=== PATIENT | female | born 1950 | race Caucasian/White ===

== ENCOUNTER → 2016-12-15 17:02 | Outpatient (CLI) | payer MEDICARE | END | disposition home or self-care (01) | LOC: D.MAMMO 09:00 | DX: Z12.31 Encounter for screening mammogram for malignant neoplasm of breast (principal) ==

== ENCOUNTER → 2017-05-02 16:04 | Outpatient (CLI) | payer MEDICARE | END | disposition home or self-care (01) | LOC: D.MRI 16:04 | DX: M25.552 Pain in left hip (principal) ==

== ENCOUNTER 2017-06-30 08:27 | Emergency (ER) | payer MEDICARE ==
[~2017-06-30 08:27] MED LIST: CELEXA20 MG PO; PLAVIX75 MG PO; TRAZODONE HCL150 MG PO
[2017-06-30 09:14] LABS: BASOPHILS 0.2 % (0-2); EOSINOPHILS 2.2 % (0-7); HEMATOCRIT 38.6 % (36.0-48.0); HEMOGLOBIN 12.9 g/dL (12-16); IMMATURE GRANULOCYTES 0.2 % (0-5); LYMPHOCYTES 22.1 % (15-50); MCH 33.8 pg (26.0-34.0); MCHC 33.4 g/dL (31.0-37.0); MEAN PLATELET VOLUME 9.5 fL (7.4-10.4); MONOCYTES 6.6 % (2-11); NEUTROPHILS 68.7 % (40-80); PLATELET COUNT 177 10x3/uL (130-400); RBC 3.82 10x6/uL (4.00-5.40); WBC 4.5 10x3/uL (4.8-10.8)
[2017-06-30 09:15] LABS: ALBUMIN 4.1 g/dL (3.4-5.0); ALKALINE PHOSPHATASE 102 U/L (46-116); ALT (SGPT) 35 U/L (10-68); CALC OSMOLALITY 287 mosm/kg (275-300); CALCIUM 9.4 mg/dL (8.5-10.1); CARBON DIOXIDE 28.7 mmol/L (21.0-32.0); CHLORIDE - SERUM 106 mmol/L (98-107); CREATININE - SERUM 0.8 mg/dL (0.6-1.3); GLUCOSE 115 mg/dL (74-106); POTASSIUM - SERUM 3.8 mmol/L (3.5-5.1); PROTEIN - SERUM 7.5 g/dL (6.4-8.2); SODIUM 143 mmol/L (136-145); UREA NITROGEN 17 mg/dL (7-18); eGFR NON AFRICAN AMERICAN 76 mL/min (90-120)
[2017-06-30 09:33] LABS: CKMB 3.1 U/L (0.0-3.6); CREATINE KINASE 302 UL (21-215); TROPONIN-I < 0.017 ng/mL (0.000-0.060)
[2017-06-30 09:50] LABS: MAGNESIUM - SERUM 2.1 mg/dL (1.8-2.4)
== END 2017-06-30 10:56 | disposition home or self-care (01) ==
LOC: D.ER 08:27
PROVIDERS: Emergency Medicine
DX: R07.9 Chest pain, unspecified (principal); I25.10 Atherosclerotic heart disease of native coronary artery without angina pectoris; R05 Cough; R06.00 Dyspnea, unspecified

== ENCOUNTER → 2018-02-11 17:05 | Outpatient (CLI) | payer MEDICARE | END | disposition home or self-care (01) | LOC: D.MAMMO 10:00 | DX: Z12.31 Encounter for screening mammogram for malignant neoplasm of breast (principal) ==

== ENCOUNTER 2019-02-23 19:34 | Emergency (ER) | payer MEDICARE ==
[~2019-02-23] VITALS: Ht 165.1 cm; Wt 70.8 kg
[2019-02-23 19:46] VITALS: Ht 165.1 cm; Wt 70.8 kg
[2019-02-23] MEDS ORDERED: VOLTAREN75 MG PO (20:41)
[2019-02-23 21:14] VITALS: BP 132/72
[2019-02-26] MEDS ORDERED: LIPITOR40 MG PO (12:51)
[2019-02-26] MEDS ORDERED: VITAMIN D31000 UNIT PO (12:52)
[2019-02-26] MEDS ORDERED: ISOSORBIDE MONO30 M1 PO (12:52)
[2019-02-26] MEDS ORDERED: BAYER CHEWABLE81 MG PO (12:53)
[2019-02-26] MEDS ORDERED: FISH OIL 1,0001 CA1 PO (12:53)
== END 2019-02-23 21:00 | disposition home or self-care (01) ==
LOC: D.ER 19:34
DX: S99.821A Other specified injuries of right foot, initial encounter (principal); I25.10 Atherosclerotic heart disease of native coronary artery without angina pectoris

== ENCOUNTER 2019-02-27 11:44 | Day surgery (SDC) | payer MEDICARE ==
[2019-02-26 13:50] LABS: HEMATOCRIT 37.2 % (36.0-48.0); HEMOGLOBIN 12.6 g/dL (12-16); MCH 32.8 pg (26.0-34.0); MCHC 33.9 g/dL (31.0-37.0); MCV 96.9 fL (80.0-100.0); MEAN PLATELET VOLUME 9.1 fL (7.4-10.4); RBC 3.84 10x6/uL (4.00-5.40); RDW 12.6 % (11.5-14.5); WBC 5.2 10x3/uL (4.8-10.8)
[~2019-02-27] VITALS: Ht 165.1 cm; Wt 66.2 kg
[~2019-02-27 11:44] MED LIST changes: +BAYER CHEWABLE81 MG PO; +FISH OIL 1,0001 CA1 PO; +ISOSORBIDE MONO30 M1 PO; +LIPITOR40 MG PO; +VITAMIN D31000 UNIT PO; +VOLTAREN75 MG PO
[2019-02-27 12:59] VITALS: BP 115/70; Ht 165.1 cm; Wt 66.2 kg
[2019-02-27] MEDS ORDERED: HYDROCODON-ACE1 EAC7 PO (20:16)
== END 2019-02-27 21:38 | disposition home or self-care (01) ==
LOC: D.OPS 11:44 → D.PAN 14:00 → D.MS 19:50 → D.OPS 21:38
PROVIDERS: Anesthesiology; ATTEND Podiatrist Foot & Ankle Surgery
DX: S92.351A Displaced fracture of fifth metatarsal bone, right foot, initial encounter for closed fracture (principal); X58.XXXA Exposure to other specified factors, initial encounter; M20.12 Hallux valgus (acquired), left foot; M21.612 Bunion of left foot; Z01.812 Encounter for preprocedural laboratory examination

== ENCOUNTER 2019-05-09 09:00 | Outpatient (CLI) | payer MEDICARE ==
[2019-02-27 12:59] VITALS: BMI 24.3
[~2019-05-09 09:00] MED LIST changes: +HYDROCODON-ACE1 EAC7 PO
== END 2019-05-09 10:00 | disposition home or self-care (01) ==
LOC: D.MAMMO 09:00
PROVIDERS: ATTEND Family Medicine
DX: Z12.31 Encounter for screening mammogram for malignant neoplasm of breast (principal)

== ENCOUNTER → 2019-05-14 17:51 | Outpatient (CLI) | payer MEDICARE ==
[2019-02-27 12:59] VITALS: BMI 24.3
[~2019-05-14 17:51] MED LIST changes: +BACTRIM 400-801 TAB PO; +CHRONULAC30 ML PO
== END | disposition home or self-care (01) ==
LOC: D.LABREF 17:51
PROVIDERS: ATTEND Podiatrist Foot & Ankle Surgery
DX: L03.116 Cellulitis of left lower limb (principal)

== ENCOUNTER 2019-05-16 14:09 | Inpatient (IN) | payer MEDICARE ==
[~2019-05-16] VITALS: Ht 165.1 cm; Wt 74.1 kg
--- NOTE | ~2019-05-16 | HEMODYNAMI ---
PATIENT:KAREEM SNYDER MEDICAL RECORD: [id number] : 52 LOCATION:[facility] D.2124 ADMISSION DATE: 05/16/19 Generatedon:05/19/20199:38 Patient name: KAREEM SNYDER Patient #: [id number] SSN: DO B: 1950 Date of study: 05/19/2019 Page: Of Hemodynamic Procedure Report Patient Data Patient Demographics Procedure consent was obtained First Name: KAREEM Gender: Female Last Name: CLAUDIO : 1950 [facility] Initial: GARY Age: 68 year(s) Patient #: [id number] Race: Unknown Additional ID: [id number] Contact details [address]: [address] [place] [address] State: [place] City: [place] Zip code: [address] Admission Admission Data Admission Date: 05/16/2019 Admission Time: 14:09 Admit Source: Other Room #: D.2124 Height (in.): 65 BSA: 1.81 (m2) Height (cm.): 165.1 BMI: 27.12 (kg/m2) Weight (lbs.): 163 Weight (kg.): 73.94 Lab Results Lab Result Date: 05/19/2019 Lab Result Time: 0:00 Biochemistry Name Units Result Min Max BUN mg/dl 10 --(-*--)-- 7 18 Creatinine mg/dl 0.8 --(-*--)-- 0.6 1.3 CBC Name Units Result Min Max Hemoglobin g/dl 13.1 -*(----)-- 13.5 17.5 Procedure Procedure Types Cath Procedure Diagnostic Procedure LHC LHC w/Coronaries w/Grafts Procedure Description Procedure Date Procedure Date: 05/19/2019 Procedure Start Time: 9:20 Procedure End Time: 9:36 Procedure Staff Name Function Randall Santos RT Scrub Janis Haque RT Monitor Roni Chan MD Performing Physician Soila Carcamo RN Nurse Mckenzie Peters RT Scrub Procedure Data Cath Procedure Fluoroscopy Diagnostic fluoroscopy Total fluoroscopy Time: 4.9 time: 4.9 min min Diagnostic fluoroscopy Total fluoroscopy dose: 206 dose: 206 mGy mGy Contrast Material Contrast Material Type Amount (ml) Isovue 300 76 Entry Location Entry Primary Successful Side Size Upsize Upsize Entry Closure Succes sful Closure Location (Fr) 1 (Fr) 2 (Fr) Remarks Device Remarks Femoral Right 5 Fr Exoseal artery Estimated blood loss: 5 ml Diagnostic catheters Device Type Used For End Catheter Placement MULTIPACK JL 4.0 5Fr Left Coronary catheter Angiography DIAGNOSTIC IM 5Fr SVG Angiography catheter ([id number]) DIAGNOSTIC AR MOD 5Fr Multi-vessel Catheter ([id number]) Angiography MULTIPACK Pigtail 5 Fr Multi-vessel catheter Angiography Procedure Complications No complications Procedure Medications Medication Administration Route Dosage 0.9% NaCl I.V. 100 ml/hr Oxygen etCO2 Nasal cannula 2 l/min Lidocaine 2% added to field 20 Heparin Flush Bag added to field 2 bags (1000units/500ml NS) Versed I.V. 2 mg Fentanyl I.V. 50 mcg Hemodynamics Rest BSA: 1.81 (m2) HGB: 13.1 (g/dl) O2 Consumption: Estimated: 165.29 (ml/min) O2 Co nsumption indexed: Estimated:91.32 (ml/min/m) Heart Rate: 66 (bpm) Pressure Samples Time Site Value (mmHg) Purpose Heart Use Rate(bpm) 9:32 LV 102/-5,8 Snapshot 67 9:33 AO 105/49(72) Pullback 66 9:33 LV 113/-4,12 Pullback 66 Gradients Valve Time Site 1 Site 2 Mean SEP/DFP Peak To Heart Use (mmHg) (sec/min) Peak Rate (mmHg) (bpm) Aortic 9:33 LV AO 9 20 8 66 113/-4,12 105/49(72) Calculations Valve P-P Mean Valve Index Valve Source Name Gradient Area Flow (cm2) Aortic 8 9 8 9 Snapshots Pre Cath Intra NCS Post Cath Vital Signs Time Heart Resp SPO2 etCO2 NIBP Rhythm Pain Sedation Rate (ipm) (%) (mmHg) (mmHg) Status Level (bpm) 9:03:43 61 17 100 0 Measuring NSR 0 (11) 10(A) , No pain 9:10:06 61 15 98 0 110/86(94) NSR 0 (11) 9(A) , No pain 9:16:25 67 15 98 0 Measuring NSR 0 (11) 9(A) , No pain 9:20:41 60 13 98 0 104/54(84) NSR 0 (11) 9(A) , No pain 9:24:53 64 16 98 0 104/61(87) NSR 0 (11) 9(A) , No pain 9:29:03 65 15 96 0 103/56(86) NSR 0 (11) 9(A) , No pain 9:33:12 66 14 97 0 98/51(80) NSR 0 (11) 10(A) , No pain Medications Time Medication Route Dose Verified Delivered Reason Notes Effe ctiveness by by 9:04:35 0.9% NaCl I.V. 100 Roni Soila used for ml/hr Dustin Carcamo data processing manager 9:04:41 Oxygen etCO2 2 Roni Soila used for Nasal l/min Dustin Carcamo procedure cannula RN 9:04:47 Lidocaine 2% added 20ml Roni Roni for local to vial Dustin Chan MD anesthetic field 9:04:51 Heparin Flush added 2 Roni Roni used for Bag to bags Dustin Chan MD procedure (1000units/500ml field NS) 9:06:36 Versed I.V. 2 mg Roni Soila for Dustin Carcamo sedation RN 9:06:52 Fentanyl I.V. 50 Roni Soila for mcg Dustin Carcamo sedation hospital cna Log Time Note 7:47:33 Diagnostic Cath Status : Elective 7:48:03 Time tracking: Regular hours (M-F 7:00 - 5:00) 7:48:08 Plan of Care:Hemodynamics will remain stable., Cardiac rhythm will remain stable., Comfort level will be maintained., Respiratory function will remain adequate., Patient/ family verbilizes understanding of procedure., Procedure tolerated without complication., Recovers from procedure without complications.. 7:49:28 Lab Result : Hemoglobin 13.1 g/dl 7:49:28 Lab Result : Creatinine 0.8 mg/dl 7:49:28 Lab Result : BUN 10 mg/dl 7:49:31 Admit Source: Other 7:49:40 Patient Weight : 163 lbs 7:49:54 Patient Height : 65 inches 8:16:59 Procedure type changed to Cath procedure, Diagnostic procedure, LHC, LHC w/Coronaries w/Grafts 8:20:02 Janis Garland RT(R) sent for patient. Start room use. 8:42:15 Patient received from Med II to CCL 2 Alert and oriented. Tansferred to table in Supine position. 8:42:17 Warm blankets applied, and oneal hugger turned on for patient comfort. 8:42:18 Correct patient and procedure confirmed by team. 8:42:19 Signed procedure consent form obtained from patient. 8:42:21 ECG and BP/O2 sat monitors applied to patient. 9:01:54 Vital chart was started 9:02:25 Baseline sample Acquired. 9:02:29 Rhythm: sinus rhythm 9:02:31 Full Disclosure recording started 9:02:37 H&P Date Dictated: 05/19/2019 New H&P dictated by physician.. 9:02:39 Pre-procedure instructions explained to patient. 9:02:39 Pre-op teaching completed and patient verbalized understanding. 9:02:40 Family in waiting room. 9:02:41 Patient NPO since Midnight. 9:02:44 Is the patient allergic to Iodine/contrast media? No. 9:02:45 Was the patient premedicated? No 9:02:46 Is patient on blood thinner?No 9:02:47 Patient diabetic? No. 9:02:50 Previous problem with sedation/anesthesia? No ? 9:02:52 Snore? No 9:02:54 Sleep apnea? No 9:02:55 Deviated septum? No 9:02:58 Opens mouth fully? Yes 9:02:59 Sticks out tongue? Yes 9:03:01 Airway obstruction? No ? 9:03:05 Dentures? Yes out 9:04:35 0.9% NaCl 100 ml/hr I.V. was administered by Soila Carcamo RN; used for procedure; 9:04:41 Oxygen 2 l/min etCO2 Nasal cannula was administered by Soila Carcamo RN; used for procedure; 9:04:47 Lidocaine 2% 20ml vial added to field was administered by Roni Chan MD; for local anesthetic; 9:04:51 Heparin Flush Bag (1000units/500ml NS) 2 bags added to field was administered by Roni Chan MD; used for procedure; 9:05:14 Pre procedure: right dorsailis pedis pulse 1+ Palpable, but thready & weak; easily obliterated 9:05:17 Pre procedure: left dorsailis pedis pulse 1+ Palpable, but thready & weak; easily obliterated 9:05:22 IV patent on arrival in left forearm with 0.9% NaCl at KVO. 9:05:25 Lab results completed and on chart. 9:05:29 Right groin area was prepped with chlora-prep and draped in sterile fashion 9:05:30 Alarms reviewed by R. N. 9:05:30 Sharps counted by scrub and verified by R.N. 9:05:31 Physician arrived 9:05:32 --------ALL STOP TIME OUT------ 9:05:33 Final Timeout: patient, procedure, and site verified with staff and physician. All members of the team are in agreement. 9:05:35 Right groin site verified by team. 9:05:38 Fire Safety Assessment: A--An alcohol-based skin anteseptic being used preoperatively., C--Open oxygen or nitrous oxide is being used., D--An ESU, laser, or fiber-optic light is being used. 9:05:41 Physical assessment completed. ASA score P 2 - A patient with mild systemic disease as per Randall Santos RT(R). 9:05:57 2) 60-89 Mildly reduced kidney function, and other findings (as for stage 1) point to kidney disease. 9:06:02 Maximum allowable contrast does (3.7 X eGFR X 0.75)210 ml. 9:06:19 Sedation plan: IV Moderate Sedation Medication:Versed, Fentanyl 9:06:36 Versed 2 mg I.V. was administered by Soila Carcamo RN; for sedation; 9:06:52 Fentanyl 50 mcg I.V. was administered by Soila Carcamo RN; for sedation; 9:15:17 Use device set Femoral Dx 9:15:18 ACIST Syringe (33461) opened to sterile field. 9:15:18 Bag Decanter (2002) opened to sterile field. 9:15:19 Medline Cath Pack ([id number]) opened to sterile field. 9:15:20 ACIST Hand Control (83617) opened to sterile field. 9:15:20 ACIST Manifold (09788) opened to sterile field. 9:15:21 DIAGNOSTIC Multipack 5Fr catheter set ([id number]) opened to sterile field. 9:15:21 Tegaderm 4 x 4 (1626W) opened to sterile field. 9:15:26 EMERALD Guide Wire (502-955) opened to sterile field. 9:15:26 SHEATH 5FR Golf ([id number]) opened to sterile field. 9:15:44 Zero performed for pressure channel P1 9:15:49 Zero performed for pressure channel P1 9:15:55 Zero performed for pressure channel P1 9:16:07 Zero performed for pressure channel P1 9:20:07 Zero performed for pressure channel P1 9:20:25 Procedure started. 9:20:27 Local anesthetic to right femoral artery with Lidocaine 2% by Randall NAVA(R).INITIAL ACCESS ONLY 9:20:39 A 5 Fr sheath was inserted into the Right Femoral artery 9:21:28 A MULTIPACK JL 4.0 5Fr catheter was advanced over the wire and used for Left Coronary Angiography. 9:21:40 LCA angiography performed. 9:21:42 Injector settings: Ml/sec: 3, Volume: 6, 9:22:08 RENEE EtCO2 d/t monitor malfunction. 9:22:27 Catheter removed. 9:25:09 A DIAGNOSTIC IM 5Fr catheter ([id number]) was advanced over the wire and used for SVG Angiography. 9:26:57 SANCHEZ to LAD angiography performed. 9:27:01 Injector settings: Ml/sec: 3, Volume: 6, 9:27:27 Catheter removed. 9:28:12 A DIAGNOSTIC AR MOD 5Fr Catheter ([id number]) was advanced over the wire and used for Multi-vessel Angiography. 9:29:12 RCA angiography performed. 9:29:19 Injector settings: Ml/sec: 3, Volume: 6, 9:29:57 SVG to RCA angiography performed. 9:30:24 SVG to Circ angiography performed. 9:30:57 Catheter removed. 9:32:00 A MULTIPACK Pigtail 5 Fr catheter was advanced over the wire and used for Multi-vessel Angiography. 9:32:36 LV hemodynamics recorded. 9:32:38 LV gram done using HALL 9:32:42 Injector settings: Ml/sec: 5, Volume: 15, 9:33:06 EF : 55 % 9:33:37 Catheter removed. 9:33:55 EXOSEAL 5Fr (EX500) opened to sterile field. 9:34:05 Sheath removed intact; hemostasis achieved with Exoseal to the Right Femoral artery. 9:34:07 Procedure ended.(Physican Out) 9:34:20 Fluoroscopy time 04.90 minutes. 9:34:49 Flurop Dose total: 206 9:34:49 Fluoroscopy dose: 206 mGy 9:34:56 Contrast amount:Isovue 300 76ml. 9:34:58 Sharps counted by scrub and verified by R.N. 9:34:59 Insertion/operative site no bleeding no hematoma. 9:35:02 Post-op/insertion site Right Femoral artery dressed using a 4 x 4 and Tegaderm. 9:35:36 Post right femoral artery:stable 9:35:38 Post Procedure Pulses reassessed and unchanged 9:35:42 Post procedure rhythm: unchanged. 9:35:44 Estimated blood loss: 5 ml 9:35:46 Post procedure instruction explained to patient.Patient verbalizes understanding. 9:35:46 Patient needs reinforcement of post procedure teaching. 9:35:47 Procedure and supply charges have been captured, reviewed, submitted and are correct. 9:35:53 Procedure Complication : No complications 9:35:59 Vital chart was stopped 9:35:59 See physician's report for complete and final results. 9:36:15 Report given to Med II. 9:36:18 Report given to Med II. 9:36:24 Patient transfered to Med II with Stretcher. 9:36:27 Procedure ended. 9:36:27 Full Disclosure recording stopped 9:36:34 End room use (Document Last) Device Usage Item Name Manufacture Quantity Catalog Hospital Part Current Minimal L ot# / Number Charge Number Stock Stock Serial# Code ACIST Acist 1 [id number] 536682 916027 529395 20 Syringe Medical (61456) Systems Inc Bag Microtek 1 244296 61307 711267 5 Decanter Medical Inc. () Medline Medline 1 [id number] 438305 40105 737847 5 Cath Pack ([id number]) ACIST Hand Acist 1 92558 333652 820146 223610 5 Control Medical (87654) Systems Inc ACIST Acist 1 77619 830604 252007 032208 5 Manifold Medical (78148) Systems Inc DIAGNOSTIC Cardinal 1 [id number] 904275 54061 229760 30 Multipack Health 5Fr catheter set (SH7712) Tegaderm 4 3M 1 1626W 804092 464600 632615 5 x 4 (1626W) EMERALD Cardinal 1 502455 124894 656158 833087 5 Guide Wire Health (502455) SHEATH 5FR Terumo 1 XYL805 364436 550708 508185 5 Golf (TRG651) MULTIPACK Cardinal 1 618546 5 JL 4.0 5Fr Health catheter DIAGNOSTIC Cardinal 1 [id number] 338193 923313 321398 5 IM 5Fr Health catheter (402604H) DIAGNOSTIC Cardinal 1 [id number] 356668 869890 529746 15 AR MOD 5Fr Health Catheter (394411H) MULTIPACK Cardinal 1 856569 5 Pigtail 5 Health Fr catheter EXOSEAL 5Fr Cardinal 1 EX500 974951 370977 565665 10 (EX500) Health Signature Audit [place] Stage Time Signature Unsigned Intra-Procedure 05/19/2019 Janis Haque 9:37:49 AM RT(R) Signatures Monitor : Janis Haque RT Signature : Date : Time : Performing Physician : Signature : Roni Chan MD Date : Time : Nurse : Soila Carcamo RN Signature : Date : Time : [place] [address], [place] [address]
[~2019-05-16 14:09] MED LIST changes: -BACTRIM 400-801 TAB PO; -CHRONULAC30 ML PO
--- NOTE | 2019-05-16 15:02 | NUR ---
PT AWAKE AND ORIENTED, LYING IN BED. ANSWERS ALL QUESTIONS APPROPRIATETLY, SHOWS NO SIGNS/SYMPTOMS OF DISTRESS AT THIS TIME. STATES FOOT HURTS A 5/10. NO QUESTIONS/CONCERNS/COMMENTS AT THIS TIME. CL IN REACH, SRX2.
[2019-05-16 15:19] VITALS: BP 121/78; Ht 165.1 cm; Wt 74.1 kg
--- NOTE | 2019-05-16 15:32 | NUR ---
SUICIDE SCREENING COMPLETED. REPLENISHMENT ANALYST NOTIFIED.
[2019-05-16 16:31] VITALS: BP 119/74
--- NOTE | 2019-05-16 16:33 | NUR ---
DR. GONZALEZ NOTIFIED AND REVIEWED PT'S BEHAVIOR AND ASSESSMENT RESULTS. PT IS A LOW RISK PER DR. GONZALEZ. DR. GONZALEZ STATED TO GIVE RESOURCES TO PT AT TIME OF DISCHARGE. NO FURTHER ORDERS AT THIS TIME. RESOURCES REVIEWED WITH PT AND SHE VERBALIZED UNDERSTANDING.
[2019-05-16 17:06] LABS: BASOPHILS 0 % (0-2); HEMATOCRIT 36.1 % (36.0-48.0); HEMOGLOBIN 12.3 g/dL (12-16); LYMPHOCYTES 19.9 % (15-50); MCH 32.7 pg (26.0-34.0); MCHC 34.1 g/dL (31.0-37.0); MEAN PLATELET VOLUME 9.3 fL (7.4-10.4); MONOCYTES 8.8 % (2-11); NEUTROPHILS 69.3 % (40-80); PLATELET COUNT 157 10x3/uL (130-400); RBC 3.76 10x6/uL (4.00-5.40); RDW 12.5 % (11.5-14.5); WBC 4.1 10x3/uL (4.8-10.8)
[2019-05-16 17:23] LABS: ANION GAP 14.3 mmol/L (8-16); CALCIUM 9.3 mg/dL (8.5-10.1); CARBON DIOXIDE 28.4 mmol/L (21.0-32.0); POTASSIUM - SERUM 3.7 mmol/L (3.5-5.1)
[2019-05-16 20:00] VITALS: BP 118/59
--- NOTE | 2019-05-16 22:36 | NUR ---
INITIAL ROUNDS COMPLETED AT 1915 HRS. PT DENIED AN DISCOMFORT. ASSESSMENT COMPLETED AT 2009 HRS. VSS. ALERT AND ORIENTED TO PERSON, PLACE AND TIME. HOBS[place]. IV TO L HAND SL. LUNGS CTA. ABD SOFT WITH ACTIVE BS NOTED. SR PER CM HR 80. DRESSING TO L FOOT CLEAN, DRY AND INTACT. PALPABLE PEDAL PULSES. PT CURRENTLY RESTING WITH EYES CLOSED. RESP EVEN AND REGULAR. SR UP X2, CALL LIGHT WITHIN REACH.
[2019-05-17] VITALS: BP 108/59
--- NOTE | 2019-05-17 00:52 | NUR ---
PT RESTING WITH EYES CLOSED. RESP EVEN AND REGULAR. SR UP X2,CALL LIGHT WITHIN REACH.
--- NOTE | 2019-05-17 02:25 | NUR ---
PT RESTING WITH EYES CLOSED. RESP EVEN AND REGULAR. SR UP X2, CALL LIGHT WITHIN REACH.
[2019-05-17 04:00] VITALS: BP 127/67
--- NOTE | 2019-05-17 04:36 | NUR ---
PT AWKE; DENIES ANY DISCOMFORT. COFFEE GIVEN PER REQUEST. SR UP X2, CALL LIGHT WITHN REACH.
[2019-05-17 05:44] LABS: BASOPHILS 0.3 % (0-2); EOSINOPHILS 8.9 % (0-7); HEMATOCRIT 35.7 % (36.0-48.0); HEMOGLOBIN 12.1 g/dL (12-16); IMMATURE GRANULOCYTES 0.3 % (0-5); LYMPHOCYTES 26.4 % (15-50); MCH 32.4 pg (26.0-34.0); MCHC 33.9 g/dL (31.0-37.0); MCV 95.5 fL (80.0-100.0); MEAN PLATELET VOLUME 9.5 fL (7.4-10.4); NEUTROPHILS 50.1 % (40-80); PLATELET COUNT 153 10x3/uL (130-400); RBC 3.74 10x6/uL (4.00-5.40); RDW 12.4 % (11.5-14.5); WBC 3.1 10x3/uL (4.8-10.8)
[2019-05-17 06:12] LABS: ALBUMIN 3.4 g/dL (3.4-5.0); ANION GAP 13.3 mmol/L (8-16); BILIRUBIN - TOTAL 0.85 mg/dL (0.2-1.3); CARBON DIOXIDE 26.5 mmol/L (21.0-32.0); POTASSIUM - SERUM 3.8 mmol/L (3.5-5.1)
--- NOTE | 2019-05-17 06:17 | NUR ---
VSS THROUGHOUT NIGHT. PT DENIED ANY DISCOMFORT. NEEDS MET; WILL CONTINUE TO MONITOR.
--- NOTE | 2019-05-17 07:45 | NUR ---
ASSESSMENT COMPLETED. ALERT AND ORIENTED. TELEMERTY SHOWS SR. LEFT HAND SL. LUNGS CLEAR. DRSG TO KEFT FOOT DRY AND INTACT. NO NEEDS VOICED. WILL MONITOR. SR UP WITH CALL LIGHT IN REACH
[2019-05-17 09:43] VITALS: BP 126/61
--- NOTE | 2019-05-17 16:08 | NUR ---
PT DENIES ANY NEEDS. FAMILY AT BEDSIDE. SR UP WITH CALL LIGHT IN REACH
[2019-05-17 20:00] VITALS: BP 135/61
--- NOTE | 2019-05-17 20:00 | NUR ---
IV STARTED #20 TO LFA WITH ATTEMPT X1 AT 1840 HRS. VANCOMYCIN STARTED AT THAT TIME.
--- NOTE | 2019-05-17 23:28 | NUR ---
ASSESSMENT COMPLETED AT 1940 HRS. VSS. SR PER CM HR 73. ALERT AND ORIENTED TO PERSON, PLACE AND TIME. HOBS[place]. LUNGS CTA. IV TO INNER L FA WITH IVAB INFUSING. DRESSING TO L FOOT CLEAN, DRY AND INTACT. PT HAD C/O CP UNDER L BREAST AND RETCHING AT 2049 HRS. PT DRY HEAVING IN [place]. PT STATED SHE HAS HAD TRIPLE BYPASS AND A STENT IN THE PAST. ALSO STATES IS CONSTIPATED. PAIN AND RETCHING SUBSIDED AFTER APPROX 10 MINUTES. PM MEDS GIVEN INCLUDING ASA AND IMDUR. INFORMED PT WILL DO EKG IF MORE PAIN. DAUGHTER CALLED NURSE'S STATION AT APPROX 212 HRS. STATED HER MOTHER CALLED AND STATED SHE WAS HAVING CP. DAUGHTER STATED HER MOTHER HAD PAIN LIKE DESCRIBED IN THE PAST AND RECEIVED A STENT. INFORMED DAUGHTER WILL MONITOR PT. EKG DONE AT APPROX 2200 HRS. PT UPSET THAT THIS NURSE WAS NOT TAKING HER PAIN SERIOUSLY. INFORMED PT IT WAS BEING TAKEN SERIOUSLY AND APOLOGIZED TO PT IF IT SEEMED IT WAS NOT. ASKED PT IF SHE WOULD LIKE ANOTHER NURSE AND SHE STATED NO. ALIS SOTO AT 2215 HRS. DAUGHTER CALLED BACK TO NURSE'S STATION AND STATED HER MOTHER WAS IN TEARS BECAUSE OF THE SITUATION. INFORMED DAUGHTER HER MOTHER WAS APOLOGIZED TO. OLED-TAR RETURNS PAGE AT 2220 HRS. INFORMED OF PT'S C/O CP. NEW ORDERS RECEIVED AND NOTED. DR HAYNES PAGEEvangelina AT 2230 HRS. RETURNED PAGE AT 2235 HRS. INFORMED OF CONSULT, PT'S HISTORY AND ORDES FROM [employer] NEW ORDERS RECEIVED AND NOTED. MORPHINE 4MG, ZOFRAN 4MG GIVEN SIVP AT 2244 HRS. PT CURRENTLY DENIES ANY DISCOMFORT. AWAITING CE RESULTS. SR UP X2, CALL LIGHT WITHIN REACH.
[2019-05-17 23:43] LABS: CKMB 0.8 U/L (0.0-3.6); CREATINE KINASE 87 UL (21-215); TROPONIN-I < 0.017 ng/mL (0.000-0.060)
[2019-05-18] VITALS: BP 121/63
--- NOTE | 2019-05-18 00:18 | NUR ---
PT AWAKE; DENIES ANY DISCOMFORT OR NEEDS. SR UP X2, CALL LIGHT WITHIN REACH.
--- NOTE | 2019-05-18 02:23 | NUR ---
PT RESTING WITH EYES CLOSED. RESP EVEN AND REGULAR. SR UP X1, CALL LIGHT WITHIN REACH.
[2019-05-18 04:00] VITALS: BP 122/66
--- NOTE | 2019-05-18 04:47 | NUR ---
EKG DONE. PT DENIES ANY DISCOMFORT. TRAZADONE 75MG PO GIVEN PER REQUEST. SR UP X2, CALL LIGHT WITHIN REACH.
[2019-05-18 05:57] LABS: BASOPHILS 0.3 % (0-2); EOSINOPHILS 9.3 % (0-7); HEMATOCRIT 36.2 % (36.0-48.0); HEMOGLOBIN 12.3 g/dL (12-16); MCH 32.5 pg (26.0-34.0); MCV 95.5 fL (80.0-100.0); MEAN PLATELET VOLUME 9.4 fL (7.4-10.4); MONOCYTES 10.3 % (2-11); NEUTROPHILS 45.1 % (40-80); PLATELET COUNT 153 10x3/uL (130-400); RBC 3.79 10x6/uL (4.00-5.40); RDW 12.4 % (11.5-14.5)
--- NOTE | 2019-05-18 05:59 | NUR ---
VSS THROUGHOUT NIGHT. SR PER CM. DENIES ANY DISCOMFORT THIS AM. NEEDS MET; WILL CONTINUE TO MONITOR.
[2019-05-18 06:33] LABS: ALBUMIN 3.3 g/dL (3.4-5.0); ALKALINE PHOSPHATASE 253 U/L (46-116); ALT (SGPT) 168 U/L (10-68); BILIRUBIN - TOTAL 0.49 mg/dL (0.2-1.3); CALC OSMOLALITY 278 mosm/kg (275-300); CALCIUM 8.8 mg/dL (8.5-10.1); CARBON DIOXIDE 27.2 mmol/L (21.0-32.0); CHLORIDE - SERUM 104 mmol/L (98-107); CKMB 1.1 U/L (0.0-3.6); CREATINE KINASE 75 UL (21-215); CREATININE - SERUM 0.8 mg/dL (0.6-1.3); GLUCOSE 151 mg/dL (74-106); POTASSIUM - SERUM 3.5 mmol/L (3.5-5.1); SODIUM 139 mmol/L (136-145); TROPONIN-I < 0.017 ng/mL (0.000-0.060); eGFR NON AFRICAN AMERICAN 76 mL/min (90-120)
[2019-05-18 06:35] LABS: UREA NITROGEN 8 mg/dL (7-18)
--- NOTE | 2019-05-18 07:20 | NUR ---
ALERT AND ORIENTED. UP TO BR AND SINK ONLY. TELEMERTY SHOWS SR. LEFT FA SL. DENIES ANY DISCOMFORT. LEFT FOOT WITH DRSG CLEAN, DRY AND INTACT. DENIES ANY NEEDS. SR UP WITH CALL LIGHT IN REACH
[2019-05-18 09:40] VITALS: BP 142/76
[2019-05-18 11:45] LABS: CKMB 0.9 U/L (0.0-3.6); CREATINE KINASE 86 UL (21-215)
[2019-05-18 11:47] LABS: TROPONIN-I < 0.017 ng/mL (0.000-0.060)
--- NOTE | 2019-05-18 15:43 | NUR ---
I have reviewed this patient and I concur with the Shift Assessment completed by the Licensed Practical Nurse today this shift.
[2019-05-18 17:00] VITALS: BP 145/67
[2019-05-18 20:00] VITALS: BP 122/71
--- NOTE | 2019-05-18 20:13 | NUR ---
INITIAL ROUNDS COMPLETED AT 1910 HRS. PT DENIED ANY DISCOMFORT. ASSESSMENT COMPLETED AT 1950 HRS. VSS. SR PER CM HR 90. ALERT AND ORIENTED TO PERSON, PLACE AND TIME. HOBSON. LUNGS CTA. IV TO INNER LFA SL. DRESSING TO L FOOT REINFORCED. PALPABLE PEDAL PULSES. REINFORCED NPO AFTER MIDNIGHT FOR AM LHC. PT STATED UNDERSTANDING. SR UP X2, CALL LIGHT WITHIN REACH.
--- NOTE | 2019-05-18 22:50 | NUR ---
PT RESTING WITH EYES CLOSED. RESP EVEN AND REGULAR. SR UP X2, CALL LIGHT WITHIN REACH.
[2019-05-19] VITALS: BP 109/62
--- NOTE | 2019-05-19 00:09 | NUR ---
PT RESTING WITH EYES CLOSED. RESP EVEN AND REGULAR. SR UP X2,CALL LIGHT WITHIN REACH.
--- NOTE | 2019-05-19 01:55 | NUR ---
PT RESTING WITH EYES CLOSED. RESP EVEN AND REGULAR. SR UP X2, CALL LIGHT WITHIN REACH.
[2019-05-19 04:00] VITALS: BP 113/64
--- NOTE | 2019-05-19 04:13 | NUR ---
VSS. PT DENIES ANY DISCOMFORT. SR UP X1, CALL LIGHT WITHIN REACH.
--- NOTE | 2019-05-19 05:37 | NUR ---
IV TO LFA INFILTRATED. DC'D WITH CATHETER INTACT. NEW IV STARTED #20 TO LFA WITH ATTEMPT X1. PT TOLERATED ACTIVITY WELL. VANCOMYCIN 1GM IVPB STARTED. PT STATED SHE RESTED WELL DURING SHIFT. DENIED ANY DISCOMFORT. FOR AM [facility]. NEEDS MET; WILL CONTINUE TO MONITOR.
[2019-05-19 05:56] LABS: BASOPHILS 0.3 % (0-2); EOSINOPHILS 12.3 % (0-7); HEMATOCRIT 38.4 % (36.0-48.0); HEMOGLOBIN 13.1 g/dL (12-16); LYMPHOCYTES 31.3 % (15-50); MCH 32.6 pg (26.0-34.0); MCHC 34.1 g/dL (31.0-37.0); MCV 95.5 fL (80.0-100.0); MEAN PLATELET VOLUME 9.2 fL (7.4-10.4); MONOCYTES 8.5 % (2-11); NEUTROPHILS 47.6 % (40-80); PLATELET COUNT 163 10x3/uL (130-400); RBC 4.02 10x6/uL (4.00-5.40); RDW 12.5 % (11.5-14.5); WBC 3.4 10x3/uL (4.8-10.8)
[2019-05-19 06:15] LABS: ALBUMIN 3.5 g/dL (3.4-5.0); ALKALINE PHOSPHATASE 257 U/L (46-116); ALT (SGPT) 146 U/L (10-68); BILIRUBIN - TOTAL 0.37 mg/dL (0.2-1.3); CALC OSMOLALITY 279 mosm/kg (275-300); CALCIUM 9.2 mg/dL (8.5-10.1); CARBON DIOXIDE 29.3 mmol/L (21.0-32.0); CHLORIDE - SERUM 105 mmol/L (98-107); CREATININE - SERUM 0.8 mg/dL (0.6-1.3); GLUCOSE 106 mg/dL (74-106); PROTEIN - SERUM 7.2 g/dL (6.4-8.2); SODIUM 141 mmol/L (136-145); UREA NITROGEN 10 mg/dL (7-18); VANCOMYCIN - TROUGH 13.1 ug/mL (10.0-20.0); eGFR NON AFRICAN AMERICAN 76 mL/min (90-120)
--- NOTE | 2019-05-19 07:28 | NUR ---
REPORT RECIEVED. WILL CONTINUE WITH PLAN OF CARE. PT LYING ON RIGHT SIDE, TALKING ON PHONE. SIDE RAILS UP. ALERT AND ORIENTED. IV PATENET NS INFUSING AT KVO VIA L FOREARM PIV. NPO FOR TIMBER HEWER. DRESSING TO LEFT FOOT IS CDI. NO SIGNS OR SYMPTOMS OF DISTRESS NOTED. PT DENIES ANY NEEDS AT THIS TIME. WILL CONTINUE TO MONITOR.
[2019-05-19 09:12] VITALS: BP 139/56
--- NOTE | 2019-05-19 09:59 | NUR ---
PT RETURN FROM COBOL APPLICATION DEVELOPER. RIGHT FEM CATH SITE IS C/D/I. NS INFUSING @100ML/HR VIA L.FOR PIV. RR EVEN AND UNLABORED ON RA. NO S/S OF HEMATOMA PRESENT. PT DENIES ANY NEEDS AT THIS TIME. WILL CTM.
--- NOTE | 2019-05-19 10:21 | NUR ---
I have reviewed this patient and I concur with the Shift Assessment completed by the Licensed Practical Nurse today this shift.
--- NOTE | 2019-05-19 12:43 | NUR ---
PT IS SITTING UP AND EATING LUNCH. NO S/S OF HEMATOMA PRESENT. PT DENIES ANY NEEDS AT THIS TIME. PT DENIES ANY NEEDS AT THIS TIME. WILL CTM.
--- NOTE | 2019-05-19 16:00 | MORECARE ---
CASE MANAGEMENT DISCHARGE SUMMARY PATIENT: KAREEM SNYDER GARY UNIT: [id number] ADM DATE: 05/16/19 AGE: 68 : 51 SEX: F ROOM/BED: D.3230 AUTHOR: LESLY RICHARDSON PHYSICIAN: REFERRING PHYSICIAN: JENNIFER HERNANDEZ DPM DATE OF SERVICE: 05/19/19 Discharge Plan Patient Name: KAREEM SNYDER Facility: [facility]:[place] : 1950 Planned Disposition: Home Anticipated Discharge Date: Discharge Date: Expected LOS: Initial Reviewer: [email or web address] Initial Review Date: 05/19/2019 Generated: 05/19/19 4:59 pm Coverage Notice Reviewer: [email or web address] - Mark Kiran Notice Issued Date-Time: 05/19/2019 12:30 Notice Type: IM Discharge Notice Notice Delivered To: Patient Relationship to Patient: Guest Service Host Name: Delivery Method: HAND - Hand Delivered Itzel Days: Prior Verbal Notification: Recipient Understood Notice: Yes Recipient Signature: Yes Med Rec Note Co-signed by Attending: Coverage Notice Comment: Patient Name: KAREEM SNYDER Page [phone] at 1600 All edits/amendments must be made on the electronic document DICTATION DATE: 05/19/191558 HOME SUPERVISOR: POLINA 05/19/191558 RPT#: [id number] DC DATE: STATUS: [facility] [address] [place] [address] END OF REPORT
--- NOTE | 2019-05-19 16:07 | MORECARE ---
CASE MANAGEMENT DISCHARGE SUMMARY PATIENT: KAREEM SNYDER GARY UNIT: [id number] ADM DATE: 05/16/19 AGE: 68 : 52 SEX: F ROOM/BED: D.4818 AUTHOR: DEBRA,DOC PHYSICIAN: REFERRING PHYSICIAN: JENNIFER HERNANDEZ DPM DATE OF SERVICE: 05/19/19 Discharge Plan Patient Name: KAREEM SNYDER Facility: [facility]:[place] : 1950 Planned Disposition: Home Anticipated Discharge Date: Discharge Date: Expected LOS: Initial Reviewer: [id number] Initial Review Date: 05/19/2019 Generated: 05/19/19 5:06 pm Comments DCP- Discharge Planning Updated by [id number]: Mark Kiran on 05/19/19 3:[address] Patient Name: KAREEM SNYDER Admission Status: Urgent Accout number: [id number] Admission Date: 05-16-2019 : 1950 Admission Diagnosis: Attending: JENNIFER HERNANDEZ Current LOS: 3 Anticipated DC Date: Planned Disposition: Home Primary Insurance: MEDICARE A & B Discharge Planning Comments: CM MET WITH PT IN ROOM TO DISCUSS DISCHARGE PLANNING AND NEEDS. PT REPORTS LIVING AT HOME INDEPENDENTLY WITH HER SON. PT HAS KNEE WALKER, WALKER AND WHEELCHAIR WITH NO MEDICAL EQUIPMENT PROVIDER PREFERENCE. PT HAS NO OUTSIDE SERVICES ASSISTING IN THE HOME. CM DISCUSSED AVAILABILITY OF HOME HEALTH, REHAB SERVICES AND MEDICAL EQUIPMENT. PT DENIES DISCHARGE NEEDS, REPORTS HER SON WILL PICK HER UP FOR DISCHARGE HOME. IMPORTANT MESSAGE FROM MEDICARE PROVIDED AND EXPLAINED. PT ASKED TO SPEAK TO [employer] REGARDING MEDICAID; CM CALLED [employer] WHO INFORMED CM THAT HE HAS SCREENED PT WHO IS OVER INCOME LIMIT FOR MEDICAID. CM NOTIFIED PT. PT PLANS TO DISCHARGE HOME WITH SON, HAS NO ANTICIPATED DISCHARGE NEEDS AT THIS TIME. FAMILY TO TRANSPORT HOME AT DISCHARGE. CM TO FOLLOW AND ASSIST IF NEEDED. Center Hole Reamer: Mark Kiran DCPIA - Discharge Planning Initial Assessment Updated by [id number]: Mark Kiran on 05/19/19 4:01 pm * Is the patient Alert and Oriented? Yes * How many steps to enter\exit or inside your home? NONE * PCP DR. BAY * Pharmacy [facility] * Preadmission Environment Home with Family * ADLs Independent * Equipment Other Walker Wheelchair * Other Equipment NO MEDICAL EQUIPMENT PROVIDER PREFERNECE * List name and contact numbers for known caregivers / representatives who currently or will assist patient after discharge: KEILA HOPKINS, DTR, * Verbal permission to speak to the caregivers and representatives has been obtained from the patient. N/A * Community resources currently utilized None * Please name any agencies selected above. NONE * Additional services required to return to the preadmission environment? No * Can the patient safely return to the preadmission environment? Yes * Has this patient been hospitalized within the prior 30 days at any hospital? No Coverage Notice Reviewer: [id number] Mallika Kiran Notice Issued Date-Time: 05/19/2019 12:30 Notice Type: IM Discharge Notice Notice Delivered To: Patient Relationship to Patient: Forming Machine Upkeep Mechanic Name: Delivery Method: HAND - Hand Delivered Itzel Days: Prior Verbal Notification: Recipient Understood Notice: Yes Recipient Signature: Yes Med Rec Note Co-signed by Attending: Coverage Notice Comment: Last DP export: 05/19/19 3:00 p Patient Name: KAREEM SNYDER Page [id number] at 1607 All edits/amendments must be made on the electronic document DICTATION DATE: 05/19/191605 CAREER TECHNOLOGY TEACHER: POLINA 05/19/191605 RPT#: [id number] DC DATE: STATUS: ADM IN [facility] [address] [place] [address] END OF REPORT
--- NOTE | 2019-05-19 19:30 | NUR ---
PT RESTING COMFORTABLY IN BED. ALERT AND ORIENTED. DENIES OTHER NEEDS AT THIS TIME. BED IN LOWEST POSITION, BED RAILS X2, CALL LIGHT WITHIN REACH. WILL CONTINUE TO MONITOR.
[2019-05-19 21:12] VITALS: BP 130/55
--- NOTE | 2019-05-19 21:53 | NUR ---
ADMINISTERED EVENING MEDICATION AT THIS TIME, NO TROUBLES SWALLOWING. PT REQUESTED PRN TRAZADONE, PROVIDED PROMPTLY WITHIN 30 MINUTES. IV INFILTRATED IN LEFT FOREARM, REMOVED WITH CATHETHER TIP INTACT. DENIES OTHER NEEDS AT THIS TIME. BED IN LOWEST POSITION, BED RAILS X2, CALL LIGHT WITHIN REACH. WILL CONTINUE TO MONITOR.
--- NOTE | 2019-05-19 23:50 | NUR ---
PT RESTING COMFORTABLY. ASSESSMENT PERFORMED AT THIS TIME. DENIES OTHER NEEDS AT THIS TIME. BED IN LOWEST POSITION, BED RAILS X2, CALL LIGHT WITHIN REACH. WILL CONTINUE TO MONITOR.
[2019-05-20] VITALS: BP 101/53
--- NOTE | 2019-05-20 01:07 | NUR ---
PT HAS NEW 22 GA PERIPHERAL IV TO THE RIGHT FA. PATENT. DENIES OTHER NEEDS AT THIS TIME. BED IN LOWEST POSITION, BEDRAILS X2, CALL LIGHT WITHIN REACH. WILL CONTINUE TO MONITOR.
--- NOTE | 2019-05-20 03:33 | NUR ---
PT RESTING COMFORTABLY IN BED WITH EYES CLOSED. BREATHING EVEN AND UNLABORED, NO S/S OF DISTRESS. BED IN LOWEST POSITION, BED RAILS X2, CALL LIGHT WITHIN REACH. WILL CONTINUE TO MONITOR.
[2019-05-20 04:00] VITALS: BP 114/60
[2019-05-20 05:19] LABS: BASOPHILS 0.2 % (0-2); HEMATOCRIT 35.6 % (36.0-48.0); LYMPHOCYTES 35.9 % (15-50); MCH 32.3 pg (26.0-34.0); MCHC 33.7 g/dL (31.0-37.0); MEAN PLATELET VOLUME 9.1 fL (7.4-10.4); MONOCYTES 6.9 % (2-11); PLATELET COUNT 162 10x3/uL (130-400); RBC 3.71 10x6/uL (4.00-5.40); RDW 12.6 % (11.5-14.5); WBC 4.2 10x3/uL (4.8-10.8)
[2019-05-20 06:04] LABS: ALBUMIN 3.1 g/dL (3.4-5.0); ALKALINE PHOSPHATASE 205 U/L (46-116); BILIRUBIN - TOTAL 0.27 mg/dL (0.2-1.3); CALC OSMOLALITY 281 mosm/kg (275-300); CALCIUM 8.7 mg/dL (8.5-10.1); CHLORIDE - SERUM 106 mmol/L (98-107); CREATININE - SERUM 0.8 mg/dL (0.6-1.3); GLUCOSE 101 mg/dL (74-106); POTASSIUM - SERUM 3.8 mmol/L (3.5-5.1); PROTEIN - SERUM 6.5 g/dL (6.4-8.2); SODIUM 142 mmol/L (136-145); UREA NITROGEN 10 mg/dL (7-18); eGFR NON AFRICAN AMERICAN 76 mL/min (90-120)
--- NOTE | 2019-05-20 06:10 | NUR ---
HUNG VANCOMYCIN, PT HAS NO COMPLAINT OF PAIN OR DISCOMFORT. DENIES OTHER NEEDS AT THIS TIME. BED IN LOWEST POSITION, BEDRAILS X2, CALL LIGHT WITHIN REACH. WILL CONTINUE TO MONITOR.
[2019-05-20 06:18] LABS: ALT (SGPT) 83 U/L (10-68)
[2019-05-20 08:45] VITALS: BP 121/58
[2019-05-20 11:29] VITALS: BP 123/61
--- NOTE | 2019-05-20 12:30 | NUR ---
PT PREOPED FOR SURGERY. VITALS STABLE. WILL CONTINUE TO MONITOR
--- NOTE | 2019-05-20 17:35 | NUR ---
leaving for or by bed. daughter at side. will cont. plan of care.
--- NOTE | 2019-05-20 19:36 | NUR ---
ASSESSMENT COMPLETE, PT A&O. RESPERATIONS EVEN ON O2 AT 2 LITERS VIA NC. IV TO RIGHT ARM SL AND A SECOND IV TO THE LEFT WRIST WITH NS AT KVO. DRSG TO LEFT FOOT FROM I&D DONE EARLIER TODAY, C/D/I. PT CURRETNLY DENIES PAIN OR NEEDS, BED LOW, CL IN REACH.
--- NOTE | 2019-05-20 21:14 | NUR ---
HS MEDS GIVEN WITH FRESH ICE WATER. UP WITH ASSIST TO BSC. PT DENIES PAIN OR NEEDS.
[2019-05-20 22:14] VITALS: BP 131/74
[2019-05-21 01:01] VITALS: BP 140/62
--- NOTE | 2019-05-21 02:37 | NUR ---
RESTING WITH EYES CLOSED, RESPERATIONS EVEN, NO S/S DISTRESS NOTED.
[2019-05-21 05:16] VITALS: BP 150/79
[2019-05-21 06:57] LABS: BASOPHILS 0.2 % (0-2); EOSINOPHILS 5.2 % (0-7); HEMATOCRIT 35.3 % (36.0-48.0); IMMATURE GRANULOCYTES 0.2 % (0-5); LYMPHOCYTES 32.7 % (15-50); MCH 32.2 pg (26.0-34.0); MCV 94.6 fL (80.0-100.0); MEAN PLATELET VOLUME 9.3 fL (7.4-10.4); MONOCYTES 7.5 % (2-11); NEUTROPHILS 54.2 % (40-80); PLATELET COUNT 180 10x3/uL (130-400); RBC 3.73 10x6/uL (4.00-5.40); RDW 12.5 % (11.5-14.5); WBC 4.8 10x3/uL (4.8-10.8)
[2019-05-21 07:29] LABS: ALBUMIN 3.1 g/dL (3.4-5.0); ALKALINE PHOSPHATASE 183 U/L (46-116); BILIRUBIN - TOTAL 0.42 mg/dL (0.2-1.3); CALC OSMOLALITY 279 mosm/kg (275-300); CALCIUM 8.8 mg/dL (8.5-10.1); CARBON DIOXIDE 27.6 mmol/L (21.0-32.0); CHLORIDE - SERUM 105 mmol/L (98-107); CREATININE - SERUM 0.7 mg/dL (0.6-1.3); GLUCOSE 99 mg/dL (74-106); POTASSIUM - SERUM 3.8 mmol/L (3.5-5.1); PROTEIN - SERUM 6.6 g/dL (6.4-8.2); SODIUM 141 mmol/L (136-145); UREA NITROGEN 11 mg/dL (7-18); VANCOMYCIN - TROUGH 22.5 ug/mL (10.0-20.0); eGFR NON AFRICAN AMERICAN 88 mL/min (90-120)
[2019-05-21 07:32] LABS: ALT (SGPT) 59 U/L (10-68)
--- NOTE | 2019-05-21 08:05 | NUR ---
REPORT REVIEVED. PT ALERT AND ORIENTED LYING SEMI FOWLERS. R FA PIV INFUSING VANC @ 125. RR EVEN AND UNLABORED. SIDE RAILS UP X2 CALL LIGHT WITHIN REACH. PT DENIES ANY NEEDS AT THIS TIME. WILL CTM.
[2019-05-21 08:41] VITALS: BP 172/70
[2019-05-21 12:04] VITALS: BP 167/65
[2019-05-21] MEDS ORDERED: CHRONULAC30 ML PO (12:49)
[2019-05-21] MEDS ORDERED: BACTRIM 400-801 TAB PO (12:51)
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
--- NOTE | 2019-05-21 15:47 | NUR ---
PT SIGNED DC PAPERWORK. PIV REMOVED CATHETER TIP FULLY INTACT.TELEMETRY REMOVED AND RETURNED. DC VIA WHEELCHAIR WITH FAMILY PRESENT
== END 2019-05-21 15:50 | disposition home or self-care (01) | DRG 496 ==
LOC: D.M2 14:09
PROVIDERS: Family Medicine; Family Medicine Adult Medicine; Internal Medicine Cardiovascular Disease; ADMIT Podiatrist Foot & Ankle Surgery; ATTEND Podiatrist Foot & Ankle Surgery
PROC: B2111ZZ Fluoroscopy of Multiple Coronary Arteries using Low Osmolar Contrast (ICD-10-PCS; 2019-05-19)
PROC: B2181ZZ Fluoroscopy of Left Internal Mammary Bypass Graft using Low Osmolar Contrast (ICD-10-PCS; 2019-05-19)
PROC: B2151ZZ Fluoroscopy of Left Heart using Low Osmolar Contrast (ICD-10-PCS; 2019-05-19)
PROC: 4A023N7 Measurement of Cardiac Sampling and Pressure, Left Heart, Percutaneous Approach (ICD-10-PCS; 2019-05-19)
PROC: B2121ZZ Fluoroscopy of Single Coronary Artery Bypass Graft using Low Osmolar Contrast (ICD-10-PCS; principal; 2019-05-19 08:20)
PROC: 0QH Lower Bones, Insertion (ICD-10-PCS; 2019-05-20)
PROC: 0QPP04Z Removal of Internal Fixation Device from Left Metatarsal, Open Approach (ICD-10-PCS; 2019-05-20 13:00)
PROC: 0J9R0ZZ Drainage of Left Foot Subcutaneous Tissue and Fascia, Open Approach (ICD-10-PCS; 2019-05-20 13:00)
DX: T84.7XXA Infection and inflammatory reaction due to other internal orthopedic prosthetic devices, implants and grafts, initial encounter (principal); L03.116 Cellulitis of left lower limb; I25.110 Atherosclerotic heart disease of native coronary artery with unstable angina pectoris; I10 Essential (primary) hypertension; F32.9 Major depressive disorder, single episode, unspecified; F41.9 Anxiety disorder, unspecified; K59.00 Constipation, unspecified; Z87.891 Personal history of nicotine dependence; Y83.9 Surgical procedure, unspecified as the cause of abnormal reaction of the patient, or of later complication, without mention of misadventure at the time of the procedure

== ENCOUNTER → 2019-11-19 15:07 | Outpatient (CLI) | payer MEDICARE ==
[2019-05-16 15:19] VITALS: BMI 26.3
[~2019-11-19 15:07] MED LIST changes: +BACTRIM 400-801 TAB PO; +CHRONULAC30 ML PO
== END | disposition home or self-care (01) ==
LOC: D.CT 15:07
PROVIDERS: ATTEND Family Medicine
DX: R10.9 Unspecified abdominal pain (principal)

== ENCOUNTER 2021-04-29 06:50 | Day surgery (SDC) | payer MEDICARE ==
[2021-04-28 09:57] LABS: BASOPHILS 0.3 % (0-2); EOSINOPHILS 2.1 % (0-7); HEMATOCRIT 40.8 % (36.0-48.0); HEMOGLOBIN 13.6 g/dL (12-16); LYMPHOCYTES 23.1 % (15-50); MCHC 33.5 g/dL (31.0-37.0); MCV 98.5 fL (80.0-100.0); MONOCYTES 8.8 % (2-11); NEUTROPHILS 65.7 % (40-80); RBC 4.14 10x6/uL (4.00-5.40); RDW 13.6 % (11.5-14.5); WBC 5.4 10x3/uL (4.8-10.8)
[2021-04-28 10:06] LABS: CALC OSMOLALITY 280 mosm/kg (275-300); CALCIUM 9.4 mg/dL (8.5-10.1); CARBON DIOXIDE 30.4 mmol/L (21.0-32.0); CHLORIDE - SERUM 104 mmol/L (98-107); CREATININE - SERUM 0.7 mg/dL (0.6-1.3); GLUCOSE 91 mg/dL (74-106); POTASSIUM - SERUM 3.5 mmol/L (3.5-5.1); SODIUM 141 mmol/L (136-145); UREA NITROGEN 13 mg/dL (7-18); eGFR NON AFRICAN AMERICAN 88 mL/min (90-120)
[2021-04-28 10:28] LABS: PLATELET COUNT 244 10x3/uL (130-400)
[~2021-04-29] VITALS: Ht 165.1 cm; Wt 72.1 kg
[~2021-04-29 06:50] MED LIST changes: +GABAPENTIN300 MG PO; +TRAZODONE HCL100 MG PO; -TRAZODONE HCL150 MG PO; -VITAMIN D31000 UNIT PO; +VITAMIN D325 MC1 PO; +WELLBUTRIN SR150 MG PO
[2021-04-29] MEDS ORDERED: HYDROCODON-ACET15 ML (07:37)
[2021-04-29 07:39] VITALS: BP 124/67; Ht 165.1 cm; Wt 72.1 kg
--- NOTE | 2021-04-30 08:20 | OP ---
PATIENT NAME: KAREEM SNYDER MEDICAL RECORD: [id number] :52 LOCATION:[facility] ADMISSION DATE: SURGEON: KENNEDY DAN DO DATE OF OPERATION: 04/29/2021 PROCEDURES PERFORMED: Right shoulder arthroscopy with distal clavicle excision, subacromial decompression, rotator cuff repair, labral debridement. PREOPERATIVE DIAGNOSES: Massive rotator cuff tear, right shoulder; labral fraying and tear, subacromial impingement and acromioclavicular joint arthritis. POSTOPERATIVE DIAGNOSES: Massive rotator cuff tear, right shoulder; labral fraying and tear, subacromial impingement and acromioclavicular joint arthritis. INDICATIONS: Ms. Snyder is a 70-year-old female who had an MRI showing the above findings. The rotator cuff was retracted back, but there was not more than 50% atrophy in the supraspinatus muscle belly. I told her we could try for repair, but there was a high risk of retear and that she may end up needing a reverse total shoulder arthroplasty, but we would try to repair it. She was okay with that and aware of the risks including infection, bleeding, damage to nerve or vessel, need for further surgery, loss of motion of the shoulder, continued pain and she signed the consent. SURGEON: Kennedy Dan DO. DESCRIPTION OF PROCEDURE: The patient was taken to the operative suite, laid in the left lateral decubitus position with the right shoulder up, given a block prior to that, given 900 mg clindamycin, sedated and LMA was placed. The right shoulder was then prepped and draped in sterile fashion. Timeout was performed; everyone was in agreement with correct side, site, patient and procedure. I then inflated the shoulder joint with 60 mL normal saline through an 18-gauge spinal needle through posterior portal. I then established a portal with an 11-blade scalpel. A trocar was then entered in the joint and established an anterior portal with an 18-gauge spinal needle and an 11-blade scalpel. The trocar was then brought in. I then saw that she had already transected or torn her long head of her biceps tendon, which I brought a burner in and debrided back to a less of the stump, so we would not flip in and out of the joint and a shaver and shaved it off. I did the same with the labrum. I then noticed that she has massive rotator cuff tear, supra and infraspinatus, and went to subacromial space, established a lateral portal with an 18-gauge spinal needle and 11 blade scalpel. A trocar was then brought in. I then brought in a shaver and did a subacromial decompression and acromioplasty. I then freed up any adhesions around the rotator cuff tendon and then through the anterior portal did a distal clavicle excision, opened the AC joint to approximately 7 mm. I then put in a grasper to ensure that I could pull the tendon over to the footprint and then I could. I then opened up the lateral portal with a 10 blade scalpel, made careful dissection down to the rotator cuff and humerus with 2 Army-Dearing, cleared off the bursa with a pickup and scissors and then put in 2 medial row anchors after using a tag stitch on the tendon and tried for traction in a horizontal mattress fashion. I then used the 2 medial row anchors with 4 sutures in each one suture tapes and bit through the tendon and pulled it over to a nice 2 lateral row anchors after crossing them repairing the tendon very nicely. I then put on a large Regeneten implant and stapled it into place. Due to the fact her biceps tendon was already torn, I did not do biceps tenodesis. I then irrigated. Alfred Alamo, certified medical technician assistant, closed the portal OPERATIVE REPORT [id number] KAREEM SNYDER GARY sites with 4-0 Monocryl in inverted interrupted fashion, the open site with 2-0 Vicryl in inverted interrupted fashion, 4-0 Monocryl on the skin and put Dermabond glue on each of them and then dressed with Telfa and Tegaderm. She was awakened, put in a sling, taken to recovery in stable condition. BLOOD LOSS: Minimal. COMPLICATIONS: None. TRANSINT:[id number] Voice Confirmation ID: [id number] DOCUMENT ID: [id number] KENNEDY DAN DO at 0820 CC: [id number] DICTATION DATE: 04/29/211749 TEACHING ASSOCIATE: 04/29/21 [id number] [facility] 04/29/21 [id number] [place] [id number]
== END 2021-04-29 13:30 | disposition home or self-care (01) ==
LOC: D.OPS 06:50
PROVIDERS: Anesthesiology; ATTEND Orthopaedic Surgery
DX: M75.101 Unspecified rotator cuff tear or rupture of right shoulder, not specified as traumatic (principal); M13.811 Other specified arthritis, right shoulder; M75.41 Impingement syndrome of right shoulder; S43.431A Superior glenoid labrum lesion of right shoulder, initial encounter; X58.XXXA Exposure to other specified factors, initial encounter